=== PATIENT | male | born 1960 | race Two or more races ===

== ENCOUNTER 2024-12-26 08:12 | Emergency (ER) | payer BC, OTHER ==
[~2024-12-26] VITALS: Ht 165.1 cm; Wt 82.2 kg
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
[2024-12-26] MEDS: ACETAMINOPHEN 325 MG TAB PO ONE (09:53)
[2024-12-26 10:00] VITALS: BP 103/72; PULSE 71; RESP 16; O2SAT 96
[2024-12-26 10:53] VITALS: TEMP 98.3
[2024-12-26 11:01] LABS: Basophils # (auto) 0 10 ^3/uL (0-0.2); Basophils % (auto) 0.3 % (0.0-2.0); Eosinophils # (auto) 0.1 10 ^3/uL (0-0.8); Eosinophils % (auto) 1.6 % (0.0-7.0); Hemoglobin 14.7 g/dL (13.5-17.5); Lymphocytes # (auto) 2.6 10 ^3/uL (0.4-5.4); Lymphocytes % (auto) 31.6 % (10.0-50.0); Mean Corpuscular Hemoglobin 29.7 pg (28.0-32.0); Mean Corpuscular Hgb Conc. 34.2 g/dL (32.0-36.0); Monocytes # (auto) 0.4 10 ^3/uL (0-1.3); Neutrophils # (auto) 5.1 10 ^3/uL (1.6-8.6); Neutrophils % (auto) 61.5 % (37.0-80.0); Nucleated Red Blood Cells % 0.1 %; Platelet Count (auto) 322 10^3/uL (140-450); Red Blood Cells 4.94 10^6/uL (4.5-5.90); Red Cell Distribution Width 13.6 % (11.8-14.3); White Blood Cell 8.3 10^3/uL (4.4-10.8)
[2024-12-26 11:12] LABS: Chloride 102 mmol/L (98-107); Potassium 4.4 mmol/L (3.5-5.1); Sodium 137 mmol/L (136-145)
[2024-12-26 11:13] LABS: Anion Gap 11 (5-15); Calcium 9.5 mg/dL (8.7-10.4); Carbon Dioxide 24 mmol/L (20-31)
[2024-12-26 11:18] LABS: BUN/Creatinine Ratio 18.3 (10.0-20.0); Blood Urea Nitrogen 13 mg/dL (9-23); Glucose 117 mg/dL (74-106)
== END 2024-12-26 11:26 | disposition left against medical advice (07) ==
LOC: ER 08:12
DX: S32.018A Other fracture of first lumbar vertebra, initial encounter for closed fracture (principal); V89.2XXA Person injured in unspecified motor-vehicle accident, traffic, initial encounter; Y93.89 Activity, other specified; Y92.411 Interstate highway as the place of occurrence of the external cause; Y99.8 Other external cause status
CPT/HCPCS: 36415; 72100; 80048; 85025